=== PATIENT | male | born 1980 | race Caucasian/White ===

== ENCOUNTER 2016-10-09 19:36 | Emergency (ER) | payer OTHER ==
--- NOTE | 2016-10-09 20:55 | US ---
DUPLX SCAN VEIN EXT UNI LT History: Left ankle pain with recent surgery. Findings: Ultrasonography of the left lower extremity was performed, with grayscale color and Doppler technique utilizing evaluation of the lower extremity. There is adequate compressibility of the deep venous system without current findings of deep venous thrombosis. Normal responses are seen to augmentation and Valsalva maneuvers. Normal respiratory variation is observed as well. Impression: 1. A left lower extremity ultrasound which currently appears negative, with no current findings of deep venous thrombosis observed.
== END 2016-10-09 19:43 | disposition home or self-care (01) ==
LOC: ED 19:36
DX: M25.572 Pain in left ankle and joints of left foot (principal); F17.210 Nicotine dependence, cigarettes, uncomplicated